=== PATIENT | female | born 1930 | race Hispanic/Latino ===

== ENCOUNTER 2018-03-01 13:16 | Emergency (ER) | payer MEDICARE, OTHER ==
[2018-03-01 13:16] VITALS: BMI 21.5
--- NOTE | 2018-03-01 14:11 | C.PDOC ---
History Of Present Illness 87 y/o female presents to ED s/p trip and fall 3 days ago. She complains of facial contusion. Pt states she lives alone, "I feel fine". Family states only saw pt today, was not told by pt that she fell. Pt currently at baseline as per family. Denies headache, nausea, vomiting, or any other injury or symptoms. No anticoag med use. sp trip and fall 3 DAYS AGO CO FACIAL CONTUSION. PT STATES LIVES ALONE, "I FEEL FINE". FAMILY STATES ONLY SAW PT TODAY, WAS NOT TOLD BY PT THAT SHE FELL. PT CURRENTLY @ BASELINE PER FAMILY. NO [place], [place], OTHER INJURY OR SX. NO ANTICOAG MED USE EXAM NAD NONTOXIC HEENT +R PERIORB FOREHEAD, NASAL HEMATOMA, EOMI CONJ CLEAR; NOSE MIDLINE; NO EPISTAXIS; NO ORAL TRAUMA NECK SUPPLE SKIN INTACT NEURO INTACT REMAINDER NEG Time Seen by Provider: 03/01/18 13:50 Chief Complaint (Nursing): Abnormal Skin Integrity History Per: Patient History/Exam Limitations: no limitations Recent travel outside of the [place]: No Additional History Per: Family Past Medical History Reviewed: Historical Data, Nursing Documentation, Vital Signs Vital Signs: Last Vital Signs Temp 97.5 F L 03/01/18 13:30 Pulse 62 03/01/18 13:30 Resp 20 03/01/18 13:30 BP 194/75 H 03/01/18 13:30 Pulse Ox 99 03/01/18 13:30 - Medical History PMH: Denies: Chronic Kidney Disease Surgical History: Cholecystectomy, Endoscopy - [facility] Procedures ESOPHAGOGASTRODUODENOSCOPY [EGD] W/CLOSED BIOPSY (03/09/14) OTH LYSIS-PERITONEAL ADHES (12/20/12) Family History: States: Unknown Family Hx - Social History Hx Tobacco Use: No Hx Alcohol Use: No Hx Substance Use: No Review Of Systems Except As Marked, All Systems Reviewed And Found Negative. Constitutional: Negative for: Fever, Chills Cardiovascular: Negative for: Chest Pain Respiratory: Negative for: Shortness of Breath Skin: Positive for: Other (facial contusion) Neurological: Negative for: Headache, Dizziness Physical Exam - Physical Exam Appears: Non-toxic, No Acute Distress Skin: Normal Color, Warm, Dry Head: Normacephalic, Other (right periorbital forehead hematoma) Eye(s): bilateral: PERRL, EOMI Nose: No Epistaxis, Other (nasal hematoma, nose midline) Oral Mucosa: Moist, No Other (no oral trauma) Neck: Normal ROM, Supple Cardiovascular: Rhythm Regular, No Murmur Respiratory: Normal Breath Sounds, No Rales, No Rhonchi, No Wheezing Gastrointestinal/Abdominal: Soft, No Tenderness Extremity: Normal ROM, No Deformity Neurological/Psych: Oriented x3, Normal Speech ED Course And Treatment O2 Sat by Pulse Oximetry: 99 (RA) Pulse Ox Interpretation: Normal Reevaluation Time: 15:32 Reassessment Condition: Unchanged (REMAINS @ BASELINE PER SON. PT ASYMPT, EXAM UNCH PRIOR.) Medical Decision Making Medical Decision Making: Plan: * Maxillofaical CT Disposition Counseled Patient/Family Regarding: Studies Performed, Diagnosis, Need For Followup - Disposition Referrals: YOUR,PMD [Other] Disposition: HOME/ ROUTINE Disposition Time: 15:33 Condition: IMPROVED Instructions: Black Eye, Minor Head Injury (DC) Forms: [facility] (Urdu) - Clinical Impression Clinical Impression: Facial contusion - Scribe Statement The provider has reviewed the documentation as recorded by the Scribe KP All medical record entries made by the Scribe were at my direction and personally dictated by me. I have reviewed the chart and agree that the record accurately reflects my personal performance of the history, physical exam, medical decision making, and the department course for this patient. I have also personally directed, reviewed, and agree with the discharge instructions and disposition.
--- NOTE | 2018-03-01 14:54 | CT ---
Date of service: 03/01/2018 PROCEDURE: CT MAXILLOFACIAL BONES WITHOUT CONTRAST HISTORY: TRAUMA COMPARISON: None available. TECHNIQUE: Contiguous axial CT images of the maxillofacial bones were obtained. Coronal and sagittal reformats were generated. Radiation dose: Total exam DLP = 760.45 mGy-cm. This CT exam was performed using one or more of the following dose reduction techniques: Automated exposure control, adjustment of the mA and/or kV according to patient size, and/or use of iterative reconstruction technique. FINDINGS: NASAL BONES: Unremarkable. ORBITS: Unremarkable. PARANASAL SINUSES/ MASTOIDS: Limited left maxillary sinus disease appreciated. MAXILLA: No fracture identified. Limited right cheek contusion identified. MANDIBLE/ TEMPOROMANDIBULAR JOINTS: Unremarkable. SKULL BASE: Unremarkable. TEMPORAL BONES: Middle ears and mastoid grossly unremarkable. OTHER FINDINGS: None. IMPRESSION: No fracture of the facial bones as demonstrated. Limited right cheek soft tissue edema/contusion identified.
[2018-03-01 15:44] VITALS: BP 135/60; PULSE 80; RESP 18; TEMP 98.5; O2SAT 100
== END 2018-03-01 15:42 | disposition home or self-care (01) ==
LOC: C.ER 13:16
DX: S00.83XA Contusion of other part of head, initial encounter (principal); W01.0XXA Fall on same level from slipping, tripping and stumbling without subsequent striking against object, initial encounter